=== PATIENT | female | born 1970 | race Caucasian/White ===

== ENCOUNTER 2016-10-15 18:24 | Emergency (ER) | payer OTHER ==
[~2016-10-15] VITALS: Ht 165.1 cm; Wt 55.3 kg
[2016-10-15] MEDS ORDERED: Ketorolac 30mg Inj IM ONE (19:00)
[2016-10-15] MEDS ORDERED: VALIUM5 MG ORAL (20:09)
[2016-10-15] MEDS ORDERED: NORCO 5-325 TA1 EACH ORAL (20:09)
[2016-10-15] MEDS ORDERED: MELOXICAM15 MG PO (20:12)
[2016-10-15 20:25] VITALS: BP 123/80
[2016-10-15 20:42] VITALS: BP 123/80
--- NOTE | 2016-10-15 21:45 | Emergency Room Report ---
History of Present Illness General Chief Complaint: Pain Source: Patient Present Illness HPI Patient presents emergency department today complaining of one week of worsening right-sided neck pain that radiates down to her hands. She states that she saw her primary care physician and was told that she had a pinched nerve the symptoms are not improving despite taking outpatient medications. Patient is currently taking gabapentin tramadol and Flexeril. She denies any trauma. Patient however is very active and exercises regularly. Patient is training for a triathlon. Patient denies any chest pain shortness of breath. She never has issues with exercising. The pain seemed to get worse with raising her arms. She denies any cough runny nose or sore throat. Denies any shortness breath headache or other complaints. Patient appears very upset about this. No other modifying factors. No other associated signs and symptoms. No other complaints were noted. Allergies: Coded Allergies: No Known Allergies (Unverified , 10/15/16) Patient History Past Medical History: none Past Surgical History: none Pertinent Family History: none Social History: Denies: alcohol use, drug use, smoking Last Menstrual Period: 10/15/16 Now: No Reviewed Nursing Documentation: PMH: Agreed, PSxH: Agreed Nursing Documentation-PMH Past Medical History: No Stated History Review of Systems All Other Systems: negative except mentioned in HPI Physical Exam Vital Signs Date Time Temp Pulse Resp B/P Pulse Ox O2 Delivery O2 Flow Rate FiO2 10/15/16 18:33 98.2 74 18 120/84 100 Room Air Sp02 EP Interpretation: reviewed, normal General Appearance: alert, mild distress Head: atraumatic ENT: normal ENT inspection, hearing grossly normal, normal voice Neck: supple, no bony tend, tender - Right paraspinal Respiratory: no respiratory distress Cardiovascular #1: no edema Musculoskeletal: normal inspection, back normal, normal range of motion Neurologic: normal inspection, alert, responsive, speech normal Psychiatric: normal inspection, judgement/insight normal, mood/affect normal Skin: normal inspection, normal color, no rash Medical Decision Making Diagnostic Impression: Primary Impression: Radiculopathy Additional Impression: Neck muscle spasm ER Course Patient presents emergency department today complaining neck pain. Differential considerations include fracture dislocation versus strain. Given patient's presentation I felt the patient likely a radiculopathy. Patient required neck x-ray. X-ray shows evidence of muscle spasms with the lost of normal curvature. Patient received one dose of Toradol with improvement in symptoms. Patient was given prescription for pain medications. Recommend outpatient followup. Recommend outpatient MRI if not improved. Patient is advised to follow up with primary doctor in 2-3 days and return the emergency room for any worsening symptoms and as needed. Other X-Ray Diagnostic Results Other X-Ray Diagnostic Results : X-Ray ordered: C-spine x-ray # of Views/Limited Vs Complete: Complete Indication: Pain EP Interpretation: Yes Interpretation: no dislocation, no soft tissue swelling, no fractures Impression: No acute disease Interpreting ER Provider: my electronic signature Last Vital Signs Date Time Temp Pulse Resp B/P Pulse Ox O2 Delivery O2 Flow Rate FiO2 10/15/16 20:25 98.2 18 123/80 100 Room Air 10/15/16 18:33 74 Status: improved Disposition: HOME, SELF-CARE Condition: Stable Scripts Meloxicam* (MELOXICAM*) 15 Mg Tablet 15 MG PO DAILY, #20 TAB Prov: LIDA MCCARTY M.D. 10/15/16 Hydrocodone Bit/Acetaminophen 5-325* (NORCO 5-325*) 1 Each Tablet 1 TAB ORAL Q6H Y for For Pain, #20 TAB 0 Refills Prov: LIDA MCCARTY M.D. 10/15/16 Diazepam* (VALIUM*) 5 Mg Tablet 5 MG ORAL TID Y for For Pain, #30 TAB 0 Refills Prov: LIDA MCCARTY M.D. 10/15/16 Referrals: BRANDI CASEY MARK Patient Instructions: Cervical Radiculopathy LIDA MCCARTY M.D. Oct 15, 2016 21:45
--- NOTE | 2016-10-16 10:48 | Diagnostic Imaging Report ---
Indication: Neck Pain Findings: 3 views of the cervical spine were obtained. There is no acute fracture identified. Alignment is normal. The open-mouth odontoid view shows an intact dens and good alignment of the lateral masses with respect to the body of C2. There is no soft tissue swelling. There is mild narrowing of the C5-6 disc with reversal of cervical lordosis. Impression: No acute injury
== END 2016-10-15 20:45 | disposition home or self-care (01) ==
LOC: EMR 20:04
DX: M54.10 Radiculopathy, site unspecified (principal); M62.838 Other muscle spasm
CPT/HCPCS: 72052; 96372; 99284; J1885